=== PATIENT | female | born 1980 ===

== ENCOUNTER 2016-11-09 10:23 | Emergency (ER) | payer MEDICAID, OTHER ==
--- NOTE | 2016-11-09 10:46 | OBHP ---
Datetime: 11/09/2016 10:43 IP Adm Impression: , intrauterine IP Chief Complaint Other: cramping IP Admit Plan: Observation/Evaluation Admit Comment, IP Provider: at 32weeks came with cramping started last night 2 am, 10/12, no lof ,no vb,+fm obhx 1 x pmh denies med pnv all nkda psh denies soch den ve closed a/p at 32weeks ctxs r/o pt labor ua npo/ivf cont steve and efm cont close observation Pelvic Type - PN: Adequate Extremities - PN: Normal Abdomen - PN: Normal Back - PN: Normal Breast - PN: Normal Lungs - PN: Normal Heart - PN: Normal Thyroid - PN: Normal Neurologic - PN: Normal HEENT - PN: Normal General - PN: Normal FHR - Baseline A Provider: 140 Contraction Comments Provider: q8-10 Comments, ACOG Physical Exam: gravid,non tender etx no edema,no calf ten Vital Signs Provider: Reviewed; Within Normal Limits NICHD Variability Prov Fetus A: Moderate 6-25bpm NICHD Accel Fetus A IP Provider: 15X15 FHR Category Provider Fetus A: Category I Dilatation, Provider: 0 Effacement, Provider: 0 Station, Provider: -3 Genitourinary Exam: Normal DTRs - PN: Normal
[2016-11-09 10:48] VITALS: BMI 32.5
[2016-11-09] MEDS ORDERED: Lactated Ringer's 1,000 ML IV SCH (11:00)
[2016-11-09 11:17] LABS: RBC URINE < 1 /hpf (0-3); URINE BACTERIA MOD (<OCC); URINE BILIRUBIN NEGATIVE (NEGATIVE); URINE BLOOD NEGATIVE (NEGATIVE); URINE COLOR Yellow (YELLOW); URINE GLUCOSE (UA) NORMAL (Normal); URINE KETONE NEGATIVE (NEGATIVE); URINE LEUKOCYTE ESTERASE TRACE Leu/uL (Negative); URINE PROTEIN NEGATIVE (NEGATIVE); URINE UROBILINOGEN NORMAL mg/dL (0.2-1.0); WBC URINE 3 /hpf (0-5)
--- NOTE | 2016-11-09 12:33 | OBDS ---
MATERNAL INFORMATION Provider Comments: baby deliverd in ion.endometrium clean 9/9 b/l tubal ligtion. no com LABOR SUMMARY EDC: 01/04/2017 00:00 PRESENTATION/POSITION BABY A Presentation: Cephalic Cephalic Presentation: Vertex Vertex Position: Left Occipital Anterior Breech Presentation: N/A PLACENTA INFORMATION BABY A Placenta Method of Delivery: Spontaneous Placenta Status: Delivered CORD INFORMATION BABY A Nuchal Cord : N/A
--- NOTE | 2016-11-09 12:41 | OBDCSUM ---
Datetime: 11/09/2016 12:39 Discharged to, Provider: Home Follow up at, Provider: wednesday Follow up in weeks, Provider: clinic Discharge Comment, Provider: dc home ptl given po hyration f/u in clinic on wednesday Discharge Diagnosis Prov Other: 32weeks ctxs nst
--- NOTE | 2016-11-09 12:41 | OBHP ---
Datetime: 11/09/2016 12:38 Admit Comment, IP Provider: pt was seen at bed side,no ctxs,vb, lof,+fm ve closed s/p terb x 1 ua neg plan dc home ptl given po hyration f/u in clinic on wednesday FHR - Baseline A Provider: 130 Contraction Comments Provider: none Vital Signs Provider: Reviewed; Within Normal Limits NICHD Variability Prov Fetus A: Moderate 6-25bpm NICHD Accel Fetus A IP Provider: 10X10 FHR Category Provider Fetus A: Category I Dilatation, Provider: 0 Effacement, Provider: 0 Station, Provider: -3
== END 2016-11-09 12:39 | disposition home or self-care (01) ==
LOC: C.EROB 10:23
DX: O60.03 Preterm labor without delivery, third trimester (principal); Z3A.32 32 weeks gestation of pregnancy
CPT/HCPCS: 81001; 99283; J3105; J7120

== ENCOUNTER 2016-12-23 09:04 | Inpatient (IN) | payer OTHER ==
[2016-12-23] MEDS ORDERED: Lactated Ringer's 1,000 ML IV SCH ×2 (09:30→10:00)
--- NOTE | 2016-12-23 09:51 | OBADHP ---
Datetime: 12/23/2016 09:35 Admit Comment, IP Provider: 36 y.o., , LMP unsure, DIVINE 01/04/17, EGA 38w 2d by sono 08/03/16 at 18 weeks, c/o ctx since 0200 hours, then every 10 minutes, now every 5 minutes, pain scale 6/10. (+) AF M; denies LOF; (+) heavy mucous since yesterday. Not sexually active during the . Denies hea dahces, blurred vision, peigastric or RUQ pain. care: [facility]. Abnormal GCT 140, normal GTT 8 7/155/146/129. 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 Denies STIs or abnormal Pap; (+)HPV PMH: denies PSH: denies NKDA Meds: PNV - QD Soc Hx: denies tobacco, illicit drug or EtOH use. x 13 years. 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 HTN. Father alive 59 y.o. - HTN, DM, cardiac disease - S/P cardiac st ent placement. No knonw fam h/o cancer P.E.: as above. Obese, in NAD. Awake, alert, oriented to time, person and place. Pleasant and coop erative. present. - cervix is thick, mid to anterior position Assessment: 36 y.o. P1, 38w 4d, entering active phase of labor. GBS (-). Category 1 tracing. Ophelia pranav BPs noted; no other stigmata of pre-eclampsia. Patient counseled on possibility of magnesium sulp hate for seizure prophylaxis; also for possible cervical ripening and/or pitocin for augmentation. Coy sanchez expressed an understanding and agrees. Patient is receptive to epidural for pain management. C linically stable. Plan: 1) Admit 2) NPO 3) Admissison labs, incl pre-eclamptic labs 4) Continuous EFM 5) Epidural, upon request 6) Anticipate vaginal delivery Pelvic Type - PN: Adequate Extremities - PN: Normal Abdomen - PN: Normal Back - PN: Normal Breast - PN: Not Done Lungs - PN: Normal Heart - PN: Normal Thyroid - PN: Not Done Neurologic - PN: Normal HEENT - PN: Normal General - PN: Normal Presentation-Admit: Vertex FHR - Baseline A Provider: 145 Membranes, Provider: Intact Contraction Comments Provider: 4-5 Comments, ACOG Physical Exam: Skin: warm, dry, intact. (+) tattoo left forearm Abdomen: Obese. Gravid. Soft. Non tender in all quadrants. Fundal height 40cm DTRs: 2+ bilaterally, lower extremity All other systems reviewed and are negative Gestation - Est Wks by US: 38 weeks 2 days IP Hx Assessment: The History has been Reviewed and is Current Vital Signs Provider: Reviewed Vital Signs Provider Details: repeat BP noted IP Chief Complaint: Uterine contractions NICHD Variability Prov Fetus A: Moderate 6-25bpm NICHD Accel Fetus A IP Provider: 15X15 FHR Category Provider Fetus A: Category I NICHD Decel Fetus A IP Provider: None Dilatation, Provider: 5 Effacement, Provider: 50 Station, Provider: -3 Genitourinary Exam: Normal DTRs - PN: Normal EGA AdmitDate IP: 38.2 IP Adm Impression: Term, intrauterine ; Active labor; Intact Membranes IP Admit Plan: Admit to unit; Initiate labor augmentation protocol Datetime: 11/09/2016 10:43 IP Chief Complaint Other: cramping
[2016-12-23 10:23] LABS: BASO % 0.4 % (0.0-2.0); EOS # 0.1 K/uL (0.0-0.7); EOS % 0.7 % (0.0-4.0); HEMATOCRIT 39.8 % (34.0-47.0); LYMPH # 2.9 K/uL (1.0-4.3); LYMPH % 26.9 % (20.0-40.0); MEAN CELL VOLUME 95.9 fL (81.0-99.0); MEAN CORPUSCULAR HEMOGLOBIN 32.1 pg (27.0-31.0); MEAN CORPUSCULAR HGB CONC 33.5 g/dL (33.0-37.0); MEAN PLATELET VOLUME 8.8 fL (7.2-11.7); MONO # 0.8 K/uL (0.0-0.8); MONO % 7.7 % (0.0-10.0); RED CELL DISTRIBUTION WIDTH 13.7 % (11.5-14.5); WHITE BLOOD COUNT 10.9 K/uL (4.8-10.8)
--- NOTE | 2016-12-23 10:24 | OBPN ---
Datetime: 12/23/2016 10:20 IP Progress Plan: Cervical Ripening; Anticipate Vaginal Delivery Contraction Comments Provider: 5 IP Progress Note Comment: Patient reports ctx pain scale 2/10; not yet ready for epidural Cytotec 25 micrograms inserted per vagina Assessment: P1, 38w 2d, cervical ripening as above. Category 1 tracing. BP wnl. Clinically stable . Plan: 1) Continue present management. 20 Anticipate vaginal delivery Dilatation, Provider: 5 Effacement, Provider: 50 Station, Provider: -3 Datetime: 12/23/2016 09:35 Membranes, Provider: Intact FHR - Baseline A Provider: 145 Gestation - Est Wks by US: 38 weeks 2 days Presentation-Admit: Vertex Vital Signs Provider: Reviewed Vital Signs Provider Details: repeat BP noted NICHD Accel Fetus A IP Provider: 15X15 FHR Category Provider Fetus A: Category I NICHD Variability Prov Fetus A: Moderate 6-25bpm NICHD Decel Fetus A IP Provider: None
[2016-12-23 10:32] LABS: RBC URINE 1 /hpf (0-3); URINE BACTERIA MANY (<OCC); WBC URINE 2 /hpf (0-5)
[2016-12-23 10:42] LABS: CHLORIDE 105 mmol/L (98-107); INR 0.9; POTASSIUM 3.6 mmol/L (3.6-5.2); SODIUM 135 mmol/L (132-148); URINE BILIRUBIN NEGATIVE (NEGATIVE); URINE BLOOD TRACE (NEGATIVE); URINE COLOR YELLOW (YELLOW); URINE GLUCOSE (UA) NEGATIVE (Normal); URINE KETONE NEGATIVE (NEGATIVE); URINE PROTEIN NEGATIVE (NEGATIVE); URINE UROBILINOGEN 0.2 mg/dL (0.2-1.0)
[2016-12-23 10:43] LABS: URINE LEUKOCYTE ESTERASE TRACE Leu/uL (Negative)
[2016-12-23 10:44] LABS: AST/SGOT 32 U/L (14-36); BILIRUBIN,TOTAL 0.6 mg/dL (0.2-1.3); CARBON DIOXIDE 20 mmol/L (22-30); GFR AFRICAN-AMERICAN > 60
[2016-12-23 10:45] LABS: ALKALINE PHOSPHATASE 215 U/L (38-126); ALT/SGPT 39 U/L (9-52); BLOOD UREA NITROGEN 7 mg/dL (7-17); GLUCOSE,RANDOM 67 mg/dL (65-105); TOTAL PROTEIN 7.1 g/dL (6.3-8.3); URIC ACID 3.6 mg/dL (2.2-7.5)
[2016-12-23 10:46] LABS: CALCIUM 9.4 mg/dl (8.6-10.4)
[2016-12-23] MEDS ORDERED: Bupivacaine 0.125%/FentaNYL 200 ML EPI ONE (11:12)
[2016-12-23] MEDS ORDERED: Oxytocin 30 UNIT 30 UNITS/500 ML BAG IV ONE (14:15)
[2016-12-23] MEDS ORDERED: Oxytocin 30 UNIT 30 UNITS/500 ML BAG IV PRN (14:30)
--- NOTE | 2016-12-23 17:02 | OBPN ---
Datetime: 12/23/2016 16:49 IP Progress Impression: Normal progression of labor IP Procedures: Artificial ROM IP Progress Plan: Continue present management; Augmentation; Anticipate Vaginal Delivery Membranes, Provider: Ruptured Amniotic Fluid Color, Provider: Clear Contraction Comments Provider: 2-3 FHR - Baseline A Provider: 140 Gestation - Est Wks by US: 38w 2d Presentation-Admit: Vertex IP Progress Note Comment: Patient with bloody show; examined at approximately 1620 hours: received i n LDR#4 c/o increasing low back pain. Denies pain of contractions; (+) vaginal pressure V.E. : as above. Pitocin at 5 mU Assessment: 36 yo P1, 38w 2d, adequate progress, in labor; S/P cervical ripening, now on pitocin. Category 1 tracing. FHR subsequently noted for "loss of contact". This is being rectified by R.N. No w, early decelerations noted. Clinically stable Plan: 1) Continue present management 2) Anticipate vaginal delivery NICHD Accel Fetus A IP Provider: 15X15 FHR Category Provider Fetus A: Category I NICHD Variability Prov Fetus A: Moderate 6-25bpm Dilatation, Provider: 7 Effacement, Provider: 80 Station, Provider: -2 NICHD Decel Fetus A IP Provider: None
[2016-12-23] MEDS ORDERED: Lidocaine 2% Inj (20ml) ONE (17:32)
[2016-12-23] MEDS ORDERED: Oxycodone/Acetaminophen 5/325 mg Tab PO PRN ×2 (18:44)
[2016-12-24] MEDS ORDERED: Benzocaine/Menthol 20%-0.5% Topical Spray (60 ml) TOP SCH
[2016-12-24 00:19] VITALS: O2SAT 98
[2016-12-24 07:48] LABS: HEMATOCRIT 33.8 % (34.0-47.0); MEAN CELL VOLUME 97.4 fL (81.0-99.0); MEAN CORPUSCULAR HGB CONC 32.9 g/dL (33.0-37.0); MEAN PLATELET VOLUME 8.8 fL (7.2-11.7); RED CELL DISTRIBUTION WIDTH 13.6 % (11.5-14.5); WHITE BLOOD COUNT 12.2 K/uL (4.8-10.8)
--- NOTE | 2016-12-24 12:35 | OBPPN ---
Datetime: 12/24/2016 12:33 PP Pain Prov: Within normal limits PP Nausea Prov: Denies PP Flatus Prov: Yes PP BM Prov: No PP Heart Prov: Normal PP Lungs Prov: Normal PP Abdomen/Uterus Prov: Normal PP Vulva/Perineum Prov: Normal PP CVA Tenderness Prov: Normal PP C/S Incision Prov: Not Applicable PP Progress Prov: Normal PP Impression Prov: Normal progression PP Plan Prov: Continue present management PP Progress Note Prov: S-patient reports adequate pain control. Denies nausea, vomiting, headache, c hest pain, shortness of breath.Ambulating and voiding without any difficulty. O-VSS Afebrile Fundus firm and below umbilicus Extremities no calf tenderness A/P Patient s/p vaginal delivery PPD 1 doing well. -continue routine care -encourage ambulation and po fluid intake Vital Signs Provider PP: Reviewed; Within Normal Limits
[2016-12-25 08:08] VITALS: BP 135/84; PULSE 80; RESP 18; TEMP 98.1
--- NOTE | 2016-12-25 11:23 | OBDS ---
DELIVERY PERSONNEL Delivery Doctor: Scott Sellers MD Scrub Nurse: Josseline Brown Acoustic Intelligence Specialist: Cande Lobo RN MATERNAL INFORMATION Delivery Anesthesia: Epidural Medications in Delivery: Pitocin 30 units IV; Lidocaine 2% locally Estimated Blood Loss (ml): 200 Placenta Cultured: No Maternal Complications: None RN Comments: Liveborn Baby Girl. 9-9. Provider Comments: Uncomplicated vaginal delivery of live female over RML episiotomy, weight 7lb 7oz , Apgars 9/9 - 12/23/16 at 1718 hours Spontaneous delivery of placenta - grossly intact; 3 cord vessel Examination of cervix, vagina, perineum - no extensions Repair as above. and mother bonding; both in stable condition LABOR SUMMARY EDC: 01/04/2017 00:00 No. Babies in Womb: 1 Attempted: No Labor Anesthesia: Epidural LABOR INFORMATION Reason for Induction: Not Applicable Onset of Labor: 12/23/2016 02:00 Complete Dilatation: 12/23/2016 17:02 Cervical Ripening Agents: Cytotec @ (Annotations: Cytotec 25mcg x 1 dose intravaginally administered by ) Oxytocin: Augmentation Group B Beta Strep: Negative (Annotations: 12/09/16) Antibiotics # of Doses: 0 Antibiotics Time of Last Dose: 0 Steroids Given: None Reason Steroids Not Administered: Not Applicable MEMBRANES Membranes Rupture Method: Artificial Rupture of Membranes: 12/23/2016 16:25 Length of Rupture (hrs): 0.88 Amniotic Fluid Color: Clear Amniotic Fluid Amount: Moderate Amniotic Fluid Odor: Normal STAGES OF LABOR Stage 1 hrs: 15 Stage 1 min: 2 Stage 2 hrs: 0 Stage 2 min: 16 Stage 3 hrs: 0 Stage 3 min: 10 Total Time in Labor hrs: 15 Total Time in Labor min: 28 VAGINAL DELIVERY Episiotomy: Right Mediolateral Laceration Extension: N/A Laceration Type: None Laceration Repair: Yes for RML Episiotomy Laceration Repair Note: 2-0 chromic and 3-0 chromic in routine fashion. Hemostasis assured. Patient tolerated procedure well Initial Vag Sponge Count: 10 Final Vag Sponge Count: 10 Initial Vag Sharps Count: 3 Final Vag Sharps Count: 3 Sponge Count Correct: Vaginal Sweep Performed Sharps Count Correct: Yes Count Comment: 2 sutures and 1 needle Correct BABY A INFORMATION Delivery Date/Time: 12/23/2016 17:18 Method of Delivery: Vaginal Born in Route : No : N/A Forceps: N/A Vacuum Extraction: N/A Shoulder Dystocia : No SHOULDER DYSTOCIA BABY A Infant Delivery Date/Time: 12/23/2016 17:18 PRESENTATION/POSITION BABY A Presentation: Cephalic Cephalic Presentation: Vertex Vertex Position: Right Occipital Anterior Breech Presentation: N/A PLACENTA INFORMATION BABY A Placenta Delivery Time : 12/23/2016 17:28 Placenta Method of Delivery: Spontaneous Placenta Status: Delivered SCORES BABY A Heart Rate 1 min: >100 bpm Resp Effort 1 min: Good Cry Reflex Irritability 1 min: Cough or Sneeze or Pulls Away Muscle Tone 1 min: Active Motion Color 1 min: Body [place], Extremities Blue Resuscitation Effort 1 min: N/A SCORE 1 MIN: 9 Heart Rate 5 min: >100 bpm Resp Effort 5 min: Good Cry Reflex Irritability 5 min: Cough or Sneeze or Pulls Away Muscle Tone 5 min: Active Motion Color 5 min: Body [place], Extremities Blue Resuscitation Effort 5 min: N/A SCORE 5 MIN: 9 INFANT INFORMATION BABY A Gestational Age at Delivery: 38.2 Gestational Status: Term Outcome : Liveborn Condition : Stable Infant Sex: Female IDENTIFICATION/MEDS BABY A ID Band Number: [id number] ID Band Location: Left Leg; Left Arm Sensor Applied: Yes Sensor Number: [id number] Sensor Location : Cord Clamp Vitamin K Given : Not Given Erythromycin Given: Not Given WEIGHT/LENGTH BABY A Birthweight (gms): 3380 Infant Weight (lb): 7 Weight (oz): 7 Infant Length Inches: 19.25 Length cms: 48.9 CORD INFORMATION BABY A No. Cord Vessels: 3 Nuchal Cord : N/A Cord Blood Taken: Yes Infant Suction: Mouth; Nose ASSESSMENT BABY A Complications: None Physical Findings at Delivery: Within Normal Limits Infant Respirations: Appears Normal Certified First Assistant/ALS Called : No Care By: /Uche CARDOZO Transferred To: [facility]
--- NOTE | 2016-12-25 11:23 | OBDS ---
DELIVERY PERSONNEL Delivery Doctor: Scott Sellers MD Scrub Nurse: Josseline Brown Opal Miner: Cande Lobo RN MATERNAL INFORMATION Delivery Anesthesia: Epidural Medications in Delivery: Pitocin 30 units IV; Lidocaine 2% locally Estimated Blood Loss (ml): 200 Placenta Cultured: No Maternal Complications: None RN Comments: Liveborn Baby Girl. 9-9. Provider Comments: Uncomplicated vaginal delivery of live female over RML episiotomy, weight 7lb 7oz , Apgars 9/9 - 12/23/16 at 1718 hours Spontaneous delivery of placenta - grossly intact; 3 cord vessel Examination of cervix, vagina, perineum - no extensions Repair as above. and mother bonding; both in stable condition LABOR SUMMARY No. Babies in Womb: 1 Attempted: No Labor Anesthesia: Epidural LABOR INFORMATION Reason for Induction: Not Applicable Onset of Labor: 12/23/2016 02:00 Complete Dilatation: 12/23/2016 17:02 Cervical Ripening Agents: Cytotec @ (Annotations: Cytotec 25mcg x 1 dose intravaginally administered by ) Oxytocin: Augmentation Group B Beta Strep: Negative (Annotations: 12/09/16) Antibiotics # of Doses: 0 Antibiotics Time of Last Dose: 0 Steroids Given: None Reason Steroids Not Administered: Not Applicable MEMBRANES Membranes Rupture Method: Artificial Rupture of Membranes: 12/23/2016 16:25 Length of Rupture (hrs): 0.88 Amniotic Fluid Color: Clear Amniotic Fluid Amount: Moderate Amniotic Fluid Odor: Normal STAGES OF LABOR Stage 1 hrs: 15 Stage 1 min: 2 Stage 2 hrs: 0 Stage 2 min: 16 Stage 3 hrs: 0 Stage 3 min: 10 Total Time in Labor hrs: 15 Total Time in Labor min: 28 VAGINAL DELIVERY Episiotomy: Right Mediolateral Laceration Extension: N/A Laceration Type: None Laceration Repair: Yes for RML Episiotomy Laceration Repair Note: 2-0 chromic and 3-0 chromic in routine fashion. Hemostasis assured. Patient tolerated procedure well Initial Vag Sponge Count: 10 Final Vag Sponge Count: 10 Initial Vag Sharps Count: 3 Final Vag Sharps Count: 3 Sponge Count Correct: Vaginal Sweep Performed Sharps Count Correct: Yes Count Comment: 2 sutures and 1 needle Correct BABY A INFORMATION Infant Delivery Date/Time: 12/23/2016 17:18 Method of Delivery: Vaginal Born in Route : No : N/A Forceps: N/A Vacuum Extraction: N/A Shoulder Dystocia : No SHOULDER DYSTOCIA BABY A Delivery Date/Time: 12/23/2016 17:18 PRESENTATION/POSITION BABY A Vertex Position: Right Occipital Anterior PLACENTA INFORMATION BABY A Placenta Delivery Time : 12/23/2016 17:28 SCORES BABY A Heart Rate 1 min: >100 bpm Resp Effort 1 min: Good Cry Reflex Irritability 1 min: Cough or Sneeze or Pulls Away Muscle Tone 1 min: Active Motion Color 1 min: Body [place], Extremities Blue Resuscitation Effort 1 min: N/A SCORE 1 MIN: 9 Heart Rate 5 min: >100 bpm Resp Effort 5 min: Good Cry Reflex Irritability 5 min: Cough or Sneeze or Pulls Away Muscle Tone 5 min: Active Motion Color 5 min: Body [place], Extremities Blue Resuscitation Effort 5 min: N/A SCORE 5 MIN: 9 INFORMATION BABY A Gestational Age at Delivery: 38.2 Gestational Status: Term Infant Outcome : Liveborn Infant Condition : Stable Infant Sex: Female IDENTIFICATION/MEDS BABY A ID Band Number: [id number] ID Band Location: Left Leg; Left Arm Sensor Applied: Yes Sensor Number: [id number] Sensor Location : Cord Clamp Vitamin K Given : Not Given Erythromycin Given: Not Given WEIGHT/LENGTH BABY A Infant Birthweight (gms): 3380 Weight (lb): 7 Infant Weight (oz): 7 Length Inches: 19.25 Infant Length cms: 48.9 CORD INFORMATION BABY A No. Cord Vessels: 3 Cord Blood Taken: Yes Suction: Mouth; Nose ASSESSMENT BABY A Complications: None Physical Findings at Delivery: Within Normal Limits Infant Respirations: Appears Normal Decorating Machine Operator/ALS Called : No Care By: /Uche CARDOZO Transferred To: [facility]
--- NOTE | 2016-12-25 11:27 | OBPPN ---
Datetime: 12/25/2016 11:22 PP Pain Prov: Within normal limits PP Nausea Prov: Denies PP Flatus Prov: Yes PP BM Prov: Yes PP Breasts Prov: Normal PP Heart Prov: Normal PP Lungs Prov: Normal PP Abdomen/Uterus Prov: Normal PP Lochia Prov: Normal PP Vulva/Perineum Prov: Normal PP CVA Tenderness Prov: Normal PP Extremities Prov: Normal PP C/S Incision Prov: Not Applicable PP Progress Prov: Normal PP Comments Phys Exam Prov: Abdomen: obese. Soft, non distended, Fundus firm, mobile, 18 weeks, non tender. Mild lochia rubra All other systems reviewed and are negative PP Impression Prov: Normal progression PP Plan Prov: Discharge PP Progress Note Prov: Patient received in room 460 no complaints. , primarily P.E.: as above. WD in NAD. Awake, alert, oriented to time, person and place. Assessment: PPD#2, 36 yo P2, S/P . Afebrile, vital signs stable. Undecided re: contraception. B rief discussion of options available. Clinically stable. Plan: 1) Discharge home 2) See full discharge instructions Vital Signs Provider PP: Reviewed; Within Normal Limits
--- NOTE | 2016-12-25 11:28 | OBDCSUM ---
Datetime: 12/25/2016 10:00 Discharged to, Provider: Home Follow up at, Provider: [facility] Disch Instr Activity: Normal activity Disch Instr Diet: Regular Discharge Diagnosis, Provider: Term Delivered Discharge Time: 12/25/2016 12:00 Follow up in weeks, Provider: 02/03/17 Disch Referrals: None Contraception discussed, Prov: Yes Disch Activity Restrictions: No exercising; No lifting; No driving; Minimize walking; Minimize stair -climbing; No sexual activity; Nothing in vagina - [place], tampons, douche Discharge Diagnosis Prov Other: Contraception counseling Contraception after Delivery: Undecided
== END 2016-12-25 14:25 | disposition home or self-care (01) | DRG 373 ==
LOC: C.EROB 09:04 → C.4D 09:26 → C.4M 20:09
PROVIDERS: ADMIT Obstetrics & Gynecology; ATTEND Obstetrics & Gynecology
PROC: 10E0XZZ Delivery of Products of Conception, External Approach (ICD-10-PCS; principal; 2016-12-23)
PROC: 0W8NXZZ Division of Female Perineum, External Approach (ICD-10-PCS; 2016-12-23)
PROC: 10907ZC Drainage of Amniotic Fluid, Therapeutic from Products of Conception, Via Natural or Artificial Opening (ICD-10-PCS; 2016-12-23)
DX: O80 Encounter for full-term uncomplicated delivery (principal); Z82.49 Family history of ischemic heart disease and other diseases of the circulatory system; Z37.0 Single live birth; Z3A.38 38 weeks gestation of pregnancy; Z83.3 Family history of diabetes mellitus

== ENCOUNTER 2017-01-20 16:02 | Inpatient (IN) | payer OTHER ==
[2017-01-20 16:03] VITALS: BMI 32.5
[2017-01-20] MEDS ORDERED: Iohexol 240 (50 ml) PO STA (16:33)
[2017-01-20] MEDS ORDERED: Sodium Chloride 0.9% 1,000 ML IV ONE (16:33)
--- NOTE | 2017-01-20 16:42 | C.PDOC ---
History Of Present Illness 36-year-old female, one-month post , spontaneous vaginal delivery with no complications, presents to the emergency department with complaints of abdominal pain. Patient states she saw her PMD one week after deliver for fever , but everything was "normal." Last night, patient developed left sided abdominal pain, that progressively worsened. Patient states the pain became constant today, described as a stabbing sensation, and worse with movement,. She notes associated fever and mild vaginal bleed. No other complaints at this time. Time Seen by Provider: 01/20/17 16:29 Chief Complaint (Nursing): Abdominal Pain History Per: Patient History/Exam Limitations: no limitations Onset/Duration Of Symptoms: Days Current Symptoms Are (Timing): Still Present Severity: Moderate Past Medical History Reviewed: Historical Data, Nursing Documentation, Vital Signs Vital Signs: Last Vital Signs Temp 100.7 F H 01/20/17 21:18 Pulse 114 H 01/20/17 21:18 Resp 20 01/20/17 21:18 BP 151/82 H 01/20/17 21:18 Pulse Ox 97 01/20/17 21:50 - [facility] Procedures DELIVERY OF PRODUCTS OF CONCEPTION, EXTERNAL APPROACH (12/23/16) DIVISION OF FEMALE PERINEUM, EXTERNAL APPROACH (12/23/16) DRAINAGE OF AMNIOTIC FL, THERAP FROM POC, VIA OPENING (12/23/16) Family History: States: No Known Family Hx - Social History Hx Alcohol Use: No Hx Substance Use: No - Immunization History Hx Tetanus Toxoid Vaccination: No Hx Influenza Vaccination: No Hx Pneumococcal Vaccination: No Review Of Systems Except As Marked, All Systems Reviewed And Found Negative. Constitutional: Positive for: Fever Cardiovascular: Negative for: Chest Pain Respiratory: Negative for: Shortness of Breath Gastrointestinal: Positive for: Abdominal Pain. Negative for: Nausea, Vomiting Genitourinary: Positive for: Vaginal Bleeding Musculoskeletal: Negative for: Back Pain Neurological: Negative for: Weakness, Numbness Physical Exam - Physical Exam Appears: Non-toxic, No Acute Distress Skin: Warm, Dry, No Rash Head: Atraumatic, Normacephalic Eye(s): bilateral: Normal Inspection, PERRL, EOMI Nose: Normal Oral Mucosa: Moist Lips: Normal Appearing Neck: Normal ROM Cardiovascular: Rhythm Regular, No Murmur Respiratory: Normal Breath Sounds, No Accessory Muscle Use Gastrointestinal/Abdominal: Soft, Tenderness (mild, left sided), No Guarding, No Rebound Extremity: Normal ROM Neurological/Psych: Oriented x3, Normal Speech ED Course And Treatment - Laboratory Results Result Diagrams: 01/20/17 16:50 01/20/17 16:50 Lab Interpretation: Abnormal (WBC 13.9, Urine + WBC 28 with moderate bacteria and 2+leukocyte esterase but also 28 squamous epithelials.) O2 Sat by Pulse Oximetry: 97 - CT Scan/US Abd & pelvis CT Other Rad Studies (CT/US): Read By Radiologist, Radiology Report Reviewed CT/US Interpretation: FINDINGS: Lower thorax: Pleural based scar is noted in the left lower lobe. ABDOMEN: Liver: The liver is low in density. There is a focal inflammation of the hepatic flexure with mucosal. thickening and inflammatory change within the adjacent fat. The liver measures 17.4 cm in. craniocaudal span at the midclavicular line. Gallbladder and bile ducts: Unremarkable. No calcified stones. No ductal dilation. Pancreas: Unremarkable. No mass. No ductal dilation. Spleen: There is a 5 mm accessory spleen anterior to this plane superiorly. Adrenals: Unremarkable. No mass. Kidneys and ureters : Unremarkable. No solid mass. No obstructing stones. No hydronephrosis. Stomach and bowel: Unremarkable. No obstruction. No mucosal thickening. Appendix: No findings to suggest acute appendicitis. PELVIS: Bladder: Unremarkable. No mass. No stones. Reproductive: There is a right ovarian dermoid measuring 4 cm in greatest diameter. ABDOMEN and PELVIS: Intraperitoneal space: A small amount of free fluid is seen in the posterior cul -de-sac. No free air. Bones/joints: No acute fracture. No dislocation. Soft tissues: Unremarkable. Vasculature: Unremarkable. No abdominal aortic aneurysm. Lymph nodes: Unremarkable. No enlarged lymph nodes. IMPRESSION: 1. Focal colitis involving a portion of the descending colon distal to the hepatic flexure. No diverticula. are seen. Inflammatory bowel disease is among the diagnostic considerations. 2. Right ovarian dermoid. 3. Hepatic steatosis Reevaluation Time: 21:48 Reassessment Condition: Unchanged (Patient still c/o left sided abdominal pain. Fever decreased to 100.7 but she remains tachycardic.) - Physician Consult Information Time Consulting Physician Contacted: 21:50 Physician Contacted: Uziel De La O Outcome Of Conversation: Patient to be admitted for descending colitis. IV antibiotics started in ED. Disposition - Disposition Disposition: HOSPITALIZED Disposition Time: 21:56 Condition: STABLE - POA Present On Arrival: None - Clinical Impression Clinical Impression: Colitis - Scribe Statement The provider has reviewed the documentation as recorded by the Scribe (Jo-Ann Swan) All medical record entries made by the Scribe were at my direction and personally dictated by me. I have reviewed the chart and agree that the record accurately reflects my personal performance of the history, physical exam, medical decision making, and the department course for this patient. I have also personally directed, reviewed, and agree with the discharge instructions and disposition
[2017-01-20 16:55] LABS: BASO % 0.4 % (0.0-2.0); EOS # 0.3 K/uL (0.0-0.7); HEMOGLOBIN 13.7 g/dL (11.0-16.0); LYMPH # 2.2 K/uL (1.0-4.3); MEAN CELL VOLUME 94.8 fL (81.0-99.0); MEAN CORPUSCULAR HEMOGLOBIN 31.4 pg (27.0-31.0); MEAN CORPUSCULAR HGB CONC 33.1 g/dL (33.0-37.0); MEAN PLATELET VOLUME 8.4 fL (7.2-11.7); MONO # 0.9 K/uL (0.0-0.8); MONO % 6.6 % (0.0-10.0); NEUT # 10.4 K/uL (1.8-7.0); RBC 4.35 Mil/uL (3.80-5.20); RED CELL DISTRIBUTION WIDTH 12.7 % (11.5-14.5); WHITE BLOOD COUNT 13.9 K/uL (4.8-10.8)
[2017-01-20 17:03] LABS: ALBUMIN 4.1 g/dL (3.5-5.0)
[2017-01-20 17:06] LABS: ALB/GLOB RATIO 1.2 (1.0-2.1); AST/SGOT 32 U/L (14-36); BLOOD UREA NITROGEN 11 mg/dL (7-17); GFR AFRICAN-AMERICAN > 60; GFR NON-AFRICAN AMERICAN > 60
[2017-01-20 17:07] LABS: ALT/SGPT 60 U/L (9-52); CALCIUM 8.8 mg/dl (8.6-10.4); LIPASE 99 U/L (23-300)
[2017-01-20] MEDS ORDERED: Iohexol 240 (50 ml) ONE (17:12)
[2017-01-20] MEDS ORDERED: Sodium Chloride 0.9% 1,000 ML ONE (17:13)
[2017-01-20 17:17] LABS: SQUAMOUS EPITHIAL 28 /hpf (0-5); URINE BACTERIA OCC (<OCC); URINE BILIRUBIN NEGATIVE (NEGATIVE); URINE CLARITY Hazy (Clear); URINE COLOR Yellow (YELLOW); URINE GLUCOSE (UA) NORMAL (Normal); URINE LEUKOCYTE ESTERASE 2+ Leu/uL (Negative); URINE NITRATE NEGATIVE (NEGATIVE); URINE PROTEIN NEGATIVE (NEGATIVE); URINE UROBILINOGEN NORMAL mg/dL (0.2-1.0)
[2017-01-20 17:20] LABS: URINE BLOOD 2+ (NEGATIVE)
[2017-01-20] MEDS ORDERED: Iodixanol 320 MG/ML 200 ML BOTTLE IV ONE (20:52)
--- NOTE | 2017-01-20 21:41 | CT ---
EXAM: CT Abdomen and Pelvis Without and With Intravenous Contrast CLINICAL HISTORY: 36 years old, female; Pain; Abdominal pain; Generalized; Additional info: Abd pain TECHNIQUE: Axial computed tomography images of the abdomen and pelvis without and with intravenous contrast. This CT exam was performed using one or more of the following dose reduction techniques: automated exposure control, adjustment of the mA and/or kV according to patient size, and/or use of iterative reconstruction technique. Coronal and sagittal reformatted images were created and reviewed. CONTRAST: 100 mL of visipaque 320 administered intravenously. EXAM DATE/TIME: Exam ordered 01/20/2017 4:33 PM COMPARISON: No relevant prior studies available. FINDINGS: Lower thorax: Pleural based scar is noted in the left lower lobe. ABDOMEN: Liver: The liver is low in density. There is a focal inflammation of the hepatic flexure with mucosal thickening and inflammatory change within the adjacent fat. The liver measures 17.4 cm in craniocaudal span at the midclavicular line Gallbladder and bile ducts: Unremarkable. No calcified stones. No ductal dilation. Pancreas: Unremarkable. No mass. No ductal dilation. Spleen: There is a 5 mm accessory spleen anterior to this plane superiorly. Adrenals: Unremarkable. No mass. Kidneys and ureters: Unremarkable. No solid mass. No obstructing stones. No hydronephrosis. Stomach and bowel: Unremarkable. No obstruction. No mucosal thickening. Appendix: No findings to suggest acute appendicitis. PELVIS: Bladder: Unremarkable. No mass. No stones. Reproductive: There is a right ovarian dermoid measuring 4 cm in greatest diameter. ABDOMEN and PELVIS: Intraperitoneal space: A small amount of free fluid is seen in the posterior cul-de-sac. No free air. Bones/joints: No acute fracture. No dislocation. Soft tissues: Unremarkable. Vasculature: Unremarkable. No abdominal aortic aneurysm. Lymph nodes: Unremarkable. No enlarged lymph nodes. IMPRESSION: 1. Focal colitis involving a portion of the descending colon distal to the hepatic flexure. No diverticula are seen. Inflammatory bowel disease is among the diagnostic considerations. 2. Right ovarian dermoid. 3. Hepatic steatosis.
[2017-01-20] MEDS ORDERED: Piperacillin/Tazobact 3.375 gm 100 ML IVPB ONE (22:06)
[2017-01-20] MEDS: Piperacillin/Tazobact 3.375 gm 100 ML IV STA ×2 (22:08→22:18)
--- NOTE | 2017-01-20 23:41 | CP.PCM.HP ---
History of Present Illness - History of Present Illness History of Present Illness: CC: Left Upper quadrant pain x 3 days HPI: 36-year-old female, one-month post , spontaneous vaginal delivery with no complications, presents to the emergency department with complaints of abdominal pain. Patient states she saw her PMD one week after deliver for fever , but everything was "normal." Last night, patient developed left sided abdominal pain sharp colicky in nature associated with fever, rigors, chills, that progressively worsened. Patient states the pain became constant today, described as a stabbing sensation, and worse with movement,. She notes associated fever and mild vaginal bleed. No other complaints at this time. Present on Admission - Present on Admission Any Indicators Present on Admission: Yes Review of Systems - Review of Systems Systems not reviewed;Unavailable: Acuity of Condition - Constitutional Constitutional: Anorexia, Chills, Fatigue, Fever, Lethargy, Malaise - EENT Eyes: absent: As Per HPI, Blind Spots, Blurred Vision, Change in Vision, Decreased Night Vision, Diplopia, Discharge, Dry Eye, Exophthalmos, Floaters, Irritation, Itchy Eyes, Loss of Peripheral Vision, Pain, Photophobia, Requires Corrective Lenses, Sees Flashes, Spots in Vision, Tunnel Vision, Other Visual Disturbances, Loss of Vision, Other Nose/Mouth/Throat: absent: As Per HPI, Epistaxis, Nasal Congestion, Nasal Discharge, Nasal Obstruction, Nasal Trauma, Nose Pain, Post Nasal Drip, Sinus Pain, Sinus Pressure, Bleeding Gums, Change in Voice, Dental Pain, Dry Mouth, Dysphagia, Halitosis, Hoarsness, Lip Swelling, Mouth Lesions, Mouth Pain, Odynophagia, Sore Throat, Throat Swelling, Tongue Swelling, Facial Pain, Neck Pain, Neck Mass, Other - Cardiovascular Cardiovascular: absent: As Per HPI, Acrocyanosis, Chest Pain, Chest Pain at Rest , Chest Pain with Activity, Claudication, Diaphoresis, Dyspnea, Dyspnea on Exertion, Edema, Irregular Heart Rhythm, Pain Radiating to Arm/Neck/Jaw, Leg Edema, Leg Ulcers, Lightheadedness, Orthopnea, Palpitations, Paroxysmal Nocturnal Dyspnea, Pedal Edema, Radiating Pain, Rapid Heart Rate, Slow Heart Rate, Syncope, Other - Respiratory Respiratory: absent: As Per HPI, Cough, Dyspnea, Hemoptysis, Dyspnea on Exertion , Wheezing, Snoring, Stridor, Pain on Inspiration, Chest Congestion, Excessive Mucous Production, Change in Mucous Color, Pain with Coughing, Other - Gastrointestinal Gastrointestinal: Abdominal Pain - Genitourinary Genitourinary: absent: As Per HPI, Change in Urinary Stream, Difficulty Urinating, Dysuria, Flank Pain, Hematuria, Pyuria, Nocturia, Urinary Incontinence, Urinary Frequency, Urinary Hesitance, Urinary Urgency, Voiding Freq/Small Amts, Freq UTI, Hx Renal/Bladder Calculi, Hx /Renal Surgery, Bladder Distension, Other - Reproductive: Female Reproductive:Female: Currently Menstual - Menstruation Menstruation: Currently Menstual - Integumentary Integumentary: absent: As Per HPI, Acne, Alopecia, Bleeding Lesions, Change in Hair, Change in Nails, Change in Pigmentation, Changing Lesions, Dry Skin, Erythema, Furuncle, Hirsutism, Lesions, New Lesions, Non-Healing Lesions, Photosensitivity, Pruritus, Rash, Skin Pain, Skin Ulcer, Sores, Striae, Swelling , Unusual Bruising, Wounds, Jaundice, Other - Neurological Neurological: absent: As Per HPI, Abnormal Gait, Abnormal Hearing, Abnormal Movements, Abnormal Speech, Behavioral Changes, Burning Sensations, Confusion, Convulsions, Disequilibrium, Dizziness, Numbness, Focal Weakness, Frequent Falls , Headaches, Lack of Coordination, Loss of Vision, Memory Loss, Paresthesias, Radicular Pain, Restless Legs, Sensory Deficit, Syncope, Tingling, Tremor, Vertigo, Weakness, Other Visual Disturbances, Other Past Patient History - Infectious Disease Hx of Infectious Diseases: None - Past Social History Smoking Status: Never Smoked - PSYCHIATRIC Hx Substance Use: No - SURGICAL HISTORY Hx Surgeries: No - ANESTHESIA Hx Anesthesia: Yes Meds Home Medications: Home Medication List Medication Instructions Recorded Confirmed Type Dicyclomine [Bentyl] 20 mg PO BID PRN #20 tab 01/22/17 Rx Metronidazole [Flagyl] 500 mg PO Q8H #15 tablet 01/22/17 Rx Allergies/Adverse Reactions: Allergies Allergy/AdvReac Type Severity Reaction Status Date / Time No Known Allergies Allergy Verified 01/20/17 16:18 Physical Exam - Constitutional Appears: No Acute Distress - Head Exam Head Exam: ATRAUMATIC, NORMAL INSPECTION, NORMOCEPHALIC - Eye Exam Eye Exam: EOMI, Normal appearance, PERRL Pupil Exam: NORMAL ACCOMODATION, PERRL - Respiratory Exam Respiratory Exam: Clear to Auscultation Bilateral, NORMAL BREATHING PATTERN - Cardiovascular Exam Cardiovascular Exam: REGULAR RHYTHM - GI/Abdominal Exam GI & Abdominal Exam: Tenderness. absent: Bruit, Diminished Bowel Sounds, Distended, Firm, Guarding, Hernia, Hyperactive Bowel Sounds, Hypoactive Bowel Sounds, Mass, Normal Bowel Sounds, Organomegaly, Pulsatile Mass, Rebound, Rigid , Soft Additional comments: LUQ Results - Vital Signs Recent Vital Signs: Last Vital Signs Temp 102 F H 01/20/17 23:21 Pulse 100 H 01/20/17 23:21 Resp 16 01/20/17 23:21 BP 118/62 01/20/17 23:21 Pulse Ox 100 01/20/17 23:21 - Labs Result Diagrams: 01/20/17 16:50 01/20/17 16:50 Assessment & Plan (1) Colitis Status: Acute
[2017-01-21] MEDS: Piperacillin/Tazobact 3.375 GM in Sodium Chloride 100 ML IVPB SCH ×4 (01:00→17:26)
[2017-01-21] MEDS: metroNIDAZOLE IV 500 mg/100 ml 500 MG/100 ML BAG IVPB SCH ×4 (02:13→21:25)
[2017-01-21] MEDS ORDERED: Peg-Electrolyte Oral Soln 4L (Golytely) PO ONE (11:30)
--- NOTE | 2017-01-21 14:19 | PN ---
LOCATION: *------* bed B. SUBJECTIVE: This is a [id number] female seen for GI consultation on 01/20/2017, reexamined again today with intermittent periods of abdominal pain, generalized weakness and malaise. It was reported abnormal CAT scan of the abdomen and pelvis. The entire chart is reviewed including, but not limited to most recent lab and radiologist's results. Current and previous medication list and current and previous medical events, and the patient is still having abnormal white blood cell, but normal hemoglobin and hematocrit. PHYSICAL EXAMINATION GENERAL: A [id number] female with low-grade temperature of 99.3, heart rate 102, respiratory rate 20 to 22, blood pressure is 128/74. HEENT: Showed pale dry oral mucous membrane. Nonicteric sclerae. LUNGS: She has got crepitation, decreased air entry at bases. HEART: Positive S1 and S2. ABDOMEN: Soft bowel sounds are present with decreased tenderness. No masses or organomegaly or rebound tenderness or guarding. RECTAL: The patient refused. EXTREMITIES: Without edema, clubbing, cyanosis.. NEUROLOGIC: No neurological deficits, sensory or motor. IMPRESSION: 1. Colitis of unclear etiology to rule out inflammatory bowel disease to rule out infectious colitis. 2. Change of bowel movement habit likely secondary to above. SUGGESTION: 1. Agree with your plan. 2. Sedimentation rate. 3. The patient referred for colonoscopy after adequate preparation to rule out possible ulcerative colitis versus pseudomembranous colitis. 4. Further recommendation to follow. Qamar Navarro MD
[2017-01-21] MEDS ORDERED: Bisacodyl 5mg EC Tab PO ONE (17:00)
--- NOTE | 2017-01-21 21:25 | CP.PCM.PN ---
Subjective - Date & Time of Evaluation Date of Evaluation: 01/21/17 Time of Evaluation: 10:00 - Subjective Subjective: Pt seen and evalauted c/o abdominal pain LUQ, will be seen by GI and scheduled possible colonoscopy, Objective - Vital Signs/Intake and Output Vital Signs (last 24 hours): Temp Pulse Resp BP Pulse Ox 97.9 F 90 20 131/82 99 01/21/17 16:02 01/21/17 16:02 01/21/17 16:02 01/21/17 16:02 01/21/17 16:02 Intake and Output: 01/21/17 01/22/17 18:59 06:59 Intake Total 700 Balance 700 - Medications Medications: Current Medications Acetaminophen (Tylenol 325mg Tab) 650 mg PO Q6 PRN PRN Reason: Fever >100.4 F Last Admin: 01/21/17 08:45 Dose: 650 mg Metronidazole (Flagyl) 500 mg in 100 mls @ 100 mls/hr IVPB Q8 WILLIAM Last Admin: 01/21/17 13:54 Dose: 100 mls/hr Piperacillin Sod/Tazobactam (Sod 3.375 gm/ Sodium Chloride) 100 mls @ 200 mls/ hr IVPB Q6H WILLIAM Last Admin: 01/21/17 17:26 Dose: 200 mls/hr Ketorolac Tromethamine (Toradol) 15 mg IVP Q6 PRN PRN Reason: Pain, moderate (4-7) Metoclopramide HCl (Reglan) 5 mg IVP Q6 WILLIAM Last Admin: 01/21/17 17:26 Dose: 5 mg - Constitutional Appears: No Acute Distress - Eye Exam Eye Exam: EOMI, Normal appearance, PERRL Pupil Exam: NORMAL ACCOMODATION, PERRL - Respiratory Exam Respiratory Exam: Clear to Ausculation Bilateral, NORMAL BREATHING PATTERN - Cardiovascular Exam Cardiovascular Exam: REGULAR RHYTHM, +S1, +S2. absent: Murmur - GI/Abdominal Exam GI & Abdominal Exam: Soft, Tenderness, Normal Bowel Sounds. absent: Bruit, Distended, Firm, Guarding, Rigid, Diminished Bowel Sounds, Hernia, Hyperactive Bowel Sounds, Hypoactive Bowel Sounds, Organomegaly, Pulsatile Mass, Rebound, Mass Assessment and Plan (1) Colitis Status: Acute
[2017-01-22] MEDS: Piperacillin/Tazobact 3.375 GM in Sodium Chloride 100 ML IVPB SCH ×3 (01:00→13:13)
[2017-01-22] MEDS: metroNIDAZOLE IV 500 mg/100 ml 500 MG/100 ML BAG IVPB SCH (05:08)
[2017-01-22] MEDS ORDERED: Propofol 10 mg/ml Inj (20 ML) ONE ×2 (11:23→11:30)
[2017-01-22 11:52] VITALS: TEMP 98.4
[2017-01-22 12:22] VITALS: BP 105/54; PULSE 72; RESP 14; O2SAT 97
[2017-01-22] MEDS ORDERED: Belladonna-Phenobarbital PO SCH (14:00)
--- NOTE | 2017-01-22 17:00 | CP.PCM.PN ---
Subjective - Date & Time of Evaluation Date of Evaluation: 01/22/17 Time of Evaluation: 11:00 - Subjective Subjective: Alert and orientedx3, no sob or abdominal pain, NAD. Objective - Vital Signs/Intake and Output Vital Signs (last 24 hours): Temp Pulse Resp BP Pulse Ox 98.4 F 72 14 105/54 L 97 01/22/17 11:38 01/22/17 12:08 01/22/17 12:08 01/22/17 12:08 01/22/17 12:08 Intake and Output: 01/22/17 01/22/17 06:59 18:59 Intake Total 300 Balance 300 Assessment and Plan - Assessment and Plan (Free Text) Assessment: Patient is seen and examined. S/P colonoscopy today. No active bleeding, tolerated diet, denies abdominal pain or vomiting, cleared by DR Molina. D/W DR Arroyo, discharge plan for today. Advised to follow up with PMD in 1 week. Flagyl po for 3 days and bentyl 20 mg prn for cramps given for home.
--- NOTE | 2017-01-22 23:31 | CON ---
DATE: 01/20/2017 LOCATION: 564, bed B. From Dr. Navarro and Dr. Jaylyn Triplett. HISTORY OF PRESENT ILLNESS: I was called for GI consultation by the admitting MD. The patient was seen and fully examined on 01/20/2017, as requested by the medical staff. The past chart is reviewed including, but not limited to the most recent lab and radiologist's results, current and previous medication list, current and previous medical events, allergy to medication list as well as all the available current and previous medical records. Case discussed at length with the admitting medical team. This is a 36-year-old female who was admitted to the hospital through the emergency room with severe crampy abdominal pain alteration of bowel movement habit about one week ago post normal spontaneous vaginal delivery with intermittent period of fever, constant left-sided pain with some mild chills and some vaginal bleeding. The patient also had episodes of mild nausea and dyspepsia, but no vomiting. PAST MEDICAL HISTORY: As above. Normal recent delivery. FAMILY HISTORY: Unknown. SOCIAL HISTORY: No known history of cigarette smoking or alcohol intake. PHYSICAL EXAMINATION GENERAL: A 36-year-old female, awake, alert, and oriented, complaining of abdominal pain with low-grade temperature of 107, heart rate 106, blood pressure 138/84 with respiratory rate 20 to 22. HEENT: Showed pale, dry oral mucous membrane. Nonicteric sclerae. LYMPH NODES: No lymphadenitis or lymphadenopathy. LUNGS: Clear. Breathing sounds are present bilaterally. HEART: S1, S2 with increased rate. ABDOMEN: Soft with slight distention and significant tenderness, especially on the left side. No mass or organomegaly. No rebound tenderness or guarding. RECTAL: The patient refused. EXTREMITIES: Without significant clubbing, cyanosis, or edema. NEUROLOGIC: No neurological deficits, sensory, or motor. LABORATORY DATA: After being admitted to the hospital, CAT scan of the abdomen and pelvis was performed, indicative of left-sided colitis and the possibility of inflammatory bowel disease was raised, as well as evidence of hepatic steatosis with right ovarian dermoid. Most recent lab results showed leukocytosis of 13.9, but so far initially normal hemoglobin and hematocrit with normal platelet count with low creatinine of 0.6 with increased ALT of 60. Initial report, urine hCG was negative. IMPRESSION; 1. Colitis as diagnosed by the radiologist's result. The possibility of early stage of inflammatory bowel disease versus pseudomembranous colitis to be ruled in or out. 2. Rule out infectious colitis. 3. Recent change in bowel movement habit, most likely secondary to above. SUGGESTION: 1. Continue current management. 2. Blood culture x2. 3. *------* workup. 4. Sedimentation rate. 5. CEA. 6. Endoscopic evaluation of the lower gastrointestinal tract after adequate preparation. 7. Further recommendation to follow. Qamar Navarro MD
== END 2017-01-22 16:47 | disposition home or self-care (01) | DRG 814 ==
LOC: C.ER 16:02 → C.5T 21:55
PROVIDERS: ADMIT Internal Medicine; ATTEND Internal Medicine
PROC: 0DBM8ZX Excision of Descending Colon, Via Natural or Artificial Opening Endoscopic, Diagnostic (ICD-10-PCS; principal; 2017-01-22 11:22)
DX: K52.89 Other specified noninfective gastroenteritis and colitis (principal); K76.0 Fatty (change of) liver, not elsewhere classified; R19.4 Change in bowel habit; K64.8 Other hemorrhoids; N93.9 Abnormal uterine and vaginal bleeding, unspecified

== ENCOUNTER 2018-05-27 10:29 | Emergency (ER) | payer OTHER ==
[2018-05-27 10:36] VITALS: BMI 33.5
[2018-05-27 11:12] LABS: SQUAMOUS EPITHIAL 63 /hpf (0-5); URINE BACTERIA OCC (<OCC); URINE BILIRUBIN NEGATIVE (NEGATIVE); URINE BLOOD NEGATIVE (NEGATIVE); URINE CLARITY Hazy (Clear); URINE COLOR Yellow (YELLOW); URINE GLUCOSE (UA) NORMAL (Normal); URINE LEUKOCYTE ESTERASE 3+ Leu/uL (Negative); URINE PROTEIN NEGATIVE (NEGATIVE); URINE UROBILINOGEN NORMAL mg/dL (0.2-1.0)
--- NOTE | 2018-05-27 15:38 | OBHP ---
Datetime: 05/27/2018 12:20 IP Adm Impression: Term, intrauterine IP Admit Plan: Observation/Evaluation Admit Comment, IP Provider: This 36 year old Female with no PMHx - presents c/o uterine contrac tions since 3am this morning. She also had increased suprapubic pressure 2d ago. She denies any vagin al bleeding, any decreased movement, or any loss of fluid. She recently had blood work complete d at [facility], but is unaware of the results. She reports feeling well overall, has had an uneventful to date, and states she wants to make sure she and the baby are okay. Denies fevers, chills, dizziness, headache, n/v, d/c, abdominal pain, LE edema, or any additional acute complaints. PMHx- none PSHx- none FamHx- Mom 61yo w/cervical CA; Dad w/HTN, CAD, hemodialysis 2018, cardiac stent SocHx- no tobacco, no ETOH, no drug use OBHx EDC 06/14/18 based on LMP and Second Trimester US LMP 09/07/17 #1 F, 01/16/05, , epidural #2 F, 12/23/16, , epidural GynHx: Onset of Menses- 15yo Periods- regular, q28W, last 3-5d No hx of STDs Mother w/ Cervical CA Assessment/ Plan irregular contractions, not complaining of pain not in active labor intggac membranes reactive NST pt request dc home for now labor precautions reviewed with pt and verbalized understanding advised to increase PO water intake advised to keep scheduled apt with clinic on wednesday 10am if no active labor Pt seen, examined, assessment and plan discussed with Dr Kristel Casiano PGY1, Internal Medicine Resident Pelvic Type - PN: Adequate Extremities - PN: Normal Abdomen - PN: Normal Back - PN: Normal Breast - PN: Not Done Lungs - PN: Normal Heart - PN: Normal Thyroid - PN: Normal Neurologic - PN: Normal HEENT - PN: Normal General - PN: Normal Presentation-Admit: Vertex FHR - Baseline A Provider: 140 Membranes, Provider: Intact Contraction Comments Provider: Irregular Comments, ACOG Physical Exam: dilated 2cm Gestation - Est Wks by US: 37.2 EGA AdmitDate IP: 37.2 Vital Signs Provider: Reviewed; Within Normal Limits IP Chief Complaint: Uterine contractions; Maternal discomfort NICHD Variability Prov Fetus A: Moderate 6-25bpm NICHD Accel Fetus A IP Provider: 10X10 FHR Category Provider Fetus A: Category I NICHD Decel Fetus A IP Provider: None Dilatation, Provider: 2 Effacement, Provider: 50 Station, Provider: -3 Genitourinary Exam: Normal DTRs - PN: Normal
--- NOTE | 2018-05-27 15:43 | OBDCSUM ---
Datetime: 05/27/2018 12:24 Discharged to, Provider: Home Follow up at, Provider: [facility] Disch Instr Activity: Normal activity Disch Instr Diet: Regular Discharge Instructions, Provider: Routine instructions given Discharge Diagnosis, Provider: False Labor - Undelivered Discharge Time: 05/27/2018 12:24 Follow up in weeks, Provider: Monday 05/28. Contraception discussed, Prov: Yes Disch Activity Restrictions: No exercising; Minimize stair-climbing Discharge Comment, Provider: This 36 year old Female with an IUP at 37.2 weeks, presents c/o ut erine contractions since 3am this morning. She also had increased suprapubic pressure 2d ago. She den ies any vaginal bleeding, any decreased movement, or any loss of fluid. She recently had blood work completed at [facility], but is unaware of the results. She reports feeling well overal l, has had an uneventful to date, and states she wants to make sure she and the baby are ok ay. Denies fevers, chills, dizziness, headache, n/v, d/c, abdominal pain, LE edema, or any additional acute complaints. PMHx- none PSHx- none FamHx- Mom 61yo w/cervical CA; Dad w/HTN, CAD, hemodialysis 2018, cardiac stent SocHx- no tobacco, no ETOH, no drug use OBHx EDC 06/14/18 based on LMP and Second Trimester US LMP 09/07/17 #1 F, 01/16/05, , epidural #2 F, 12/23/16, , epidural GynHx: Onset of Menses- 15yo Periods- regular, q28W, last 3-5d No hx of STDs Mother w/ Cervical CA Assessment/ Plan irregular contractions, not complaining of pain UA Negative not in active labor intact membranes reactive NST pt request dc home for now and ordered labor precautions reviewed with pt and verbalized understanding advised to increase PO water intake advised to keep scheduled apt with clinic on Wednesday 10am if no active labor Pt seen, examined, assessment and plan discussed with Dr Kristel Casiano PGY1, Internal Medicine Resident Discharge Diagnosis Prov Other: Term Contraception after Delivery: Undecided
[2018-05-27 16:49] VITALS: BP 125/84; PULSE 93; RESP 18; TEMP 98.4; O2SAT 96
== END 2018-05-27 12:27 | disposition home or self-care (01) ==
LOC: C.EROB 10:29
DX: O47.1 False labor at or after 37 completed weeks of gestation (principal); Z3A.37 37 weeks gestation of pregnancy

== ENCOUNTER 2018-05-31 09:10 | Inpatient (IN) | payer OTHER ==
[2018-05-31 09:39] VITALS: BMI 33.6
[2018-05-31] MEDS ORDERED: Oxycodone/Acetaminophen 5/325 mg Tab PO PRN ×2 (10:04→10:30)
[2018-05-31 10:24] LABS: BASO % 0.5 % (0.0-2.0); EOS # 0.1 K/uL (0.0-0.7); EOS % 1.3 % (0.0-4.0); HEMOGLOBIN 14.5 g/dL (11.0-16.0); LYMPH # 2.5 K/uL (1.0-4.3); LYMPH % 27.3 % (20.0-40.0); MEAN CELL VOLUME 99.2 fL (81.0-99.0); MEAN CORPUSCULAR HEMOGLOBIN 33.5 pg (27.0-31.0); MEAN CORPUSCULAR HGB CONC 33.8 g/dL (33.0-37.0); MEAN PLATELET VOLUME 8.8 fL (7.2-11.7); MONO # 0.5 K/uL (0.0-0.8); MONO % 5.4 % (0.0-10.0); NEUT % 65.5 % (50.0-75.0); RBC 4.33 Mil/uL (3.80-5.20); RED CELL DISTRIBUTION WIDTH 13.6 % (11.5-14.5); WHITE BLOOD COUNT 9.2 K/uL (4.8-10.8)
[2018-05-31 10:28] LABS: ALB/GLOB RATIO 1.2 (1.0-2.1); ALBUMIN 3.8 g/dL (3.5-5.0); ALT/SGPT 34 U/L (9-52); AST/SGOT 33 U/L (14-36); BLOOD UREA NITROGEN 7 mg/dL (7-17); GFR NON-AFRICAN AMERICAN > 60
[2018-05-31] MEDS ORDERED: Benzocaine/Menthol 20%-0.5% Topical Spray (60 ml) TOP PRN (10:30)
[2018-05-31] MEDS ORDERED: Lidocaine Hydrochloride 10 ML INJ ONE (10:35)
--- NOTE | 2018-05-31 13:25 | OBHP ---
Datetime: 05/31/2018 09:29 IP Adm Impression: Term, intrauterine ; Active labor; Intact Membranes IP Admit Plan: Admit to unit; Initiate labor protocol Admit Comment, IP Provider: This 36 year old Female with an IUP at 37.6 weeks, presents c/o inc reased suprapubic pressure and uterine contractions since 5am this morning. She states that these con tractions feel more intense than when she last presented on 05/27/18. She currently denies any vagina l bleeding, any decreased movement, or any loss of fluid. She recently had blood work completed at [facility], but is unaware of the results. She has had an uneventful to date, and "feels like the baby is coming today." Denies fevers, chills, dizziness, headache, n/v, d/c, LE e golden, or any additional acute complaints. PMHx- GBS+ (current ) PSHx- none FamHx- Mom 61yo w/cervical CA; Dad w/HTN, CAD, hemodialysis 2018, cardiac stent SocHx- no tobacco, no ETOH, no drug use OBHx EDC 06/14/18 based on LMP and Second Trimester US LMP 09/07/17 #1 F, 01/16/05, , epidural #2 F, 12/23/16, , epidural GynHx: Onset of Menses- 15yo Periods- regular, q28W, last 3-5d No hx of STDs Mother w/ Cervical CA A_P: -admit for active labor -GBS+ -> start Penicillin G IV 5mu -LR 1L bolus + LR 125cc/hr -intact membranes -reactive NST Case discussed with Dr Marlo Florian, DO, PGY3 Attending Note: patient seen, examined by me. I agree with the above as documented. Patient is cli nically stable. Anticipate vaginal delivery Pelvic Type - PN: Adequate Extremities - PN: Normal Abdomen - PN: Normal Back - PN: Normal Lungs - PN: Normal Heart - PN: Normal Thyroid - PN: Normal Neurologic - PN: Normal HEENT - PN: Normal General - PN: Normal FHR - Baseline A Provider: 135 Membranes, Provider: Intact Contraction Comments Provider: 2-3 Comments, ACOG Physical Exam: No LE edema, cervix dilated 9.5-10cm Gestation - Est Wks by US: 38.0 IP Hx Assessment: The History has been Reviewed and is Current (Annotations: Data stored by CPN on behalf of user) EGA AdmitDate IP: 37.6 Vital Signs Provider: Reviewed; Within Normal Limits IP Chief Complaint: Uterine contractions NICHD Variability Prov Fetus A: Moderate 6-25bpm (Annotations: Data stored by CPN on behalf of user) NICHD Accel Fetus A IP Provider: 10X10 FHR Category Provider Fetus A: Category I NICHD Decel Fetus A IP Provider: Variable Dilatation, Provider: 10 Effacement, Provider: 90 Station, Provider: -1 Genitourinary Exam: Normal DTRs - PN: Normal
--- NOTE | 2018-05-31 13:50 | OBDS ---
DELIVERY PERSONNEL Delivery Doctor: Scott Sellers MD Commissioning Specialist: John Hernadezdarci RN MATERNAL INFORMATION Delivery Anesthesia: None Medications in Delivery: pitocin 20 Estimated Blood Loss (ml): 500 Placenta Cultured: No Maternal Complications: None Provider Comments: Spontaneous vagnal delivery, live male , LINDSAY position. 's mouth and n ose bulb-suctioned; umbilical cord doubly clamped and cut; infant handed to range scientist in attendanc e. Spontaneous delivery of placenta: grossly intact; 3 vessel cord Uterine exploration performed; uterus emptied of clots. Uterus firm and contracted Inspection of cervix, vagina and perineum performed - laceration as above; repaired. Mother tolerated procedure; skin to skin with infant. Both in stable condition. EBL 500mL Weight 7lb 6oz 's 9/9 LABOR SUMMARY EDC: 06/15/2018 00:00 No. Babies in Womb: 1 LABOR INFORMATION Group B Beta Strep: Positive STAGES OF LABOR Stage 3 hrs: 0 Stage 3 min: 30 VAGINAL DELIVERY Episiotomy: None Laceration Extension: First Degree Laceration Type: Perineal Laceration Repair Note: 2-0 chromic - routine fashion. Hemostasis assured; Patient tolerated procedu re well Initial Vag Sponge Count: 10 Final Vag Sponge Count: 10 Initial Vag Sharps Count: 1 Final Vag Sharps Count: 1 Sponge Count Correct: Yes Sharps Count Correct: Yes Count Comment: Correct BABY A INFORMATION Delivery Date/Time: 05/31/2018 09:59 Method of Delivery: Vaginal Born in Route : No : N/A Forceps: N/A Vacuum Extraction: N/A Shoulder Dystocia : No SHOULDER DYSTOCIA BABY A Infant Delivery Date/Time: 05/31/2018 09:59 PRESENTATION/POSITION BABY A Presentation: Cephalic Cephalic Presentation: Vertex Vertex Position: Left Occipital Anterior Breech Presentation: N/A PLACENTA INFORMATION BABY A Placenta Delivery Time : 05/31/2018 10:29 Placenta Method of Delivery: Spontaneous Placenta Status: Delivered SCORES BABY A Heart Rate 1 min: >100 bpm Resp Effort 1 min: Good Cry Reflex Irritability 1 min: Cough or Sneeze or Pulls Away Muscle Tone 1 min: Active Motion Color 1 min: Body Cope, Extremities Blue Resuscitation Effort 1 min: Tactile Stimulation SCORE 1 MIN: 9 Heart Rate 5 min: >100 bpm Resp Effort 5 min: Good Cry Reflex Irritability 5 min: Cough or Sneeze or Pulls Away Muscle Tone 5 min: Active Motion Color 5 min: Body Cope, Extremities Blue SCORE 5 MIN: 9 INFANT INFORMATION BABY A Gestational Age at Delivery: 37.6 Gestational Status: Infant Outcome : Liveborn Infant Condition : Stable Sex: Male IDENTIFICATION/MEDS BABY A ID Band Number: [id number] ID Band Location: Left Leg; Left Arm Sensor Applied: Yes Sensor Number: [id number] Sensor Location : Cord Clamp Vitamin K Given : Aquamephyton 1 mg IM Erythromycin Given: Given Both Eyes WEIGHT/LENGTH BABY A Infant Birthweight (gms): 3345 Weight (lb): 7 Infant Weight (oz): 6 Infant Length Inches: 19.00 Length cms: 48.3 CORD INFORMATION BABY A No. Cord Vessels: 3 Nuchal Cord : N/A Cord Blood Taken: Yes Infant Suction: Mouth; Nose (Annotations: Data stored by [facility] on behalf of user) ASSESSMENT BABY A Infant Complications: None Physical Findings at Delivery: Within Normal Limits Infant Respirations: Appears Normal Dado Operator/ALS Called : No Infant Care By: dee Transferred To: Remains with Mother
[2018-05-31 21:33] LABS: SQUAMOUS EPITHIAL 1 /hpf (0-5); URINE BACTERIA RARE (<OCC); URINE BILIRUBIN NEGATIVE (NEGATIVE); URINE BLOOD 3+ (NEGATIVE); URINE CLARITY Clear (Clear); URINE COLOR AMBER (YELLOW); URINE GLUCOSE (UA) NORMAL (Normal); URINE LEUKOCYTE ESTERASE 1+ Leu/uL (Negative); URINE PROTEIN 1+ mg/dL (NEGATIVE); URINE UROBILINOGEN NORMAL mg/dL (0.2-1.0)
[2018-06-01 07:13] LABS: BASO % 0.3 % (0.0-2.0); EOS # 0.2 K/uL (0.0-0.7); EOS % 1.6 % (0.0-4.0); LYMPH # 2.9 K/uL (1.0-4.3); MEAN CORPUSCULAR HEMOGLOBIN 32.7 pg (27.0-31.0); MEAN CORPUSCULAR HGB CONC 33.7 g/dL (33.0-37.0); MEAN PLATELET VOLUME 8.1 fL (7.2-11.7); MONO # 0.7 K/uL (0.0-0.8); MONO % 6.3 % (0.0-10.0); NEUT # 7.8 K/uL (1.8-7.0); NEUT % 66.8 % (50.0-75.0); RBC 3.66 Mil/uL (3.80-5.20); RED CELL DISTRIBUTION WIDTH 13.7 % (11.5-14.5); WHITE BLOOD COUNT 11.7 K/uL (4.8-10.8)
[2018-06-01] MEDS: Multiple Vitamins Tab PO SCH (09:35)
[2018-06-01] MEDS: Simethicone 80 mg Chewtab PO PRN (09:35)
--- NOTE | 2018-06-01 22:14 | OBPPN ---
Datetime: 06/01/2018 10:28 PP Pain Prov: Within normal limits PP Nausea Prov: Denies PP Flatus Prov: Yes PP BM Prov: No PP Breasts Prov: Not Done PP Heart Prov: Normal PP Lungs Prov: Normal PP Abdomen/Uterus Prov: Normal PP Lochia Prov: Normal PP Extremities Prov: Normal PP Progress Prov: Normal PP Impression Prov: Normal progression PP Plan Prov: Continue present management PP Progress Note Prov: Pt denies chest pain, SOB. Pt denies abdominal pain, does reports some mild c ramping. Pt states she is attempting to breastfeed, but she has not begun producing milk yet. Pt stat es she has flatus but has not moved her bowels yet. Pt has been drinking water. Pt states she has bee n having vaginal discharge, which is minimal and red/ bloody. Pt denies fever or chills, or any other signs of infection. Assessment and plan - Day #1 - PP H_H 12.0/35.5 - Blood Type A+g - continue to attempt to breast feed - mortin for pain control as needed - continue OOB and walking - encourged to continue to drink water - continue current managment - progressing well Pt seen, examined, assessment and plan discussed with Dr Yvon Casiano PGY1, Internal Medicine [employer] IP PP Procedures: None Vital Signs Provider PP: Within Normal Limits
[2018-06-02 08:44] VITALS: BP 119/76; PULSE 79; RESP 20; TEMP 98.1
[2018-06-02] MEDS: Multiple Vitamins Tab PO SCH (10:32)
[2018-06-02] MEDS: Simethicone 80 mg Chewtab PO PRN (10:32)
--- NOTE | 2018-06-02 18:03 | OBDCSUM ---
Datetime: 06/02/2018 13:06 Discharged to, Provider: Home Follow up at, Provider: [facility] Disch Instr Activity: Normal activity Disch Instr Diet: Regular Discharge Instructions, Provider: Routine instructions given Discharge Diagnosis, Provider: Term Delivered Discharge Time: 06/02/2018 13:30 Follow up in weeks, Provider: 6 weeks Disch Referrals: None Contraception discussed, Prov: Yes Disch Activity Restrictions: No sexual activity; Nothing in vagina - [place], tampons, douche Discharge Diagnosis Prov Other: Advanced maternal age Short interval between Multiparity, desires permanent sterilization Contraception ncounseling Contraception after Delivery: Undecided
--- NOTE | 2018-06-02 18:12 | OBPPN ---
Datetime: 06/02/2018 10:11 PP Pain Prov: Within normal limits PP Nausea Prov: Denies PP Flatus Prov: Yes PP BM Prov: No PP Breasts Prov: Normal PP Heart Prov: Normal PP Lungs Prov: Normal PP Abdomen/Uterus Prov: Normal PP Lochia Prov: Normal PP Vulva/Perineum Prov: Normal PP CVA Tenderness Prov: Normal PP Extremities Prov: Normal PP C/S Incision Prov: Not Applicable PP Progress Prov: Normal PP Comments Phys Exam Prov: Abdomen: Obese. Soft. Non distended. Fundus firm, mobile, non tender, 1 FB below umbilicus. Mild lochia rubra Extremities: no calf tenderness, or edema All other systems reviewed and are negative PP Impression Prov: Normal progression PP Plan Prov: Discharge PP Progress Note Prov: Pt seen and examined this morning at bedside. Pt has no new complaints at thi s time. Pt states her pain is controlled well with motrin. Pt reports her vaginal discharge is bloody and mostly like a period. Pt states she has been OOB and able to walk. She is drinking water. Pt has passes flatus but no BM yet. Assessment and plan - plan to discharge home today - pt advised to continue to take PNV - pt given prescription for motrin and advised to take for pain - pt advised pelvic rest, no intercourse for the next 6 weeks - control methods were discussed, pt expresses interest in possible permenent tubal ligation in the future. advised to use barrier/ condoms until a final decision is made - advised to follow up with her OBGYN for continued out pt care Pt seen, examined, assessement and plan discussed with Dr Marlo Casiano PGY1, Internal Medicine Resident Attending Note: patient seen and evaluated by me with the Resident. I agree with the above as docu mented - 37 y.o. P3, PPD#2, S/P . Afebrile, vital signs stable. Patient desires permanent sterilizatio n. Discussed other methods while awaiting surgery - most interested in OCPs, then condom use. Clinica lly stable. Plan: 1) Discharge home 2) See full discharge instrucitons IP PP Procedures: None Vital Signs Provider PP: Reviewed; Within Normal Limits
[2018-06-02 18:51] VITALS: O2SAT 97
== END 2018-06-02 14:46 | disposition home or self-care (01) | DRG 373 ==
LOC: C.EROB 09:10 → C.4D 09:25 → C.EROB 09:28 → C.4M 12:34
PROVIDERS: ADMIT Obstetrics & Gynecology; ATTEND Obstetrics & Gynecology
PROC: 10E0XZZ Delivery of Products of Conception, External Approach (ICD-10-PCS; principal; 2018-05-31)
PROC: 0HQ9XZZ Repair Perineum Skin, External Approach (ICD-10-PCS; 2018-05-31)
DX: O99.824 Streptococcus B carrier state complicating childbirth (principal); O70.0 First degree perineal laceration during delivery; Z3A.37 37 weeks gestation of pregnancy; Z37.0 Single live birth

== ENCOUNTER 2018-06-06 23:02 | Emergency (ER) | payer OTHER ==
[2018-06-06 23:02] VITALS: BMI 33.6
--- NOTE | 2018-06-07 00:10 | C.PDOC ---
History Of Present Illness 37 year old female presents to the ED c/o constipation, difficulty moving her bowels for the past 4 days. Patient is 1 week post currently breast feeding, vaginal delivery. Patient states her pain is mostly on RLQ that anywher e else. Patient denies fever, chills, nausea, vomit, diarrhea, rash, back pain. Time Seen by Provider: 06/07/18 00:10 Chief Complaint (Nursing): Abdominal Pain History Per: Patient History/Exam Limitations: no limitations Onset/Duration Of Symptoms: Days Current Symptoms Are (Timing): Still Present Location Of Pain/Discomfort: Diffuse, RLQ Quality Of Discomfort: Dull, Aching Associated Symptoms: Constipation. denies: Fever, Chills, Nausea, Vomiting, Diarrhea Alleviating Factors: None Recent travel outside of the [place]: No Additional History Per: Patient Abnormal Vaginal Bleeding: No Past Medical History Reviewed: Historical Data, Nursing Documentation, Vital Signs Vital Signs: Last Vital Signs Temp 98.6 F 06/06/18 23:07 Pulse 101 H 06/06/18 23:07 Resp 20 06/06/18 23:07 BP 121/79 06/06/18 23:07 Pulse Ox 98 06/06/18 23:07 - Medical History PMH: No Chronic Diseases Surgical History: No Surg Hx - [facility] Procedures DELIVERY OF PRODUCTS OF CONCEPTION, EXTERNAL APPROACH (05/31/18) DIVISION OF FEMALE PERINEUM, EXTERNAL APPROACH (12/23/16) DRAINAGE OF AMNIOTIC FL, THERAP FROM POC, VIA OPENING (12/23/16) EXCISION OF DESCENDING COLON, ENDO, DIAGN (01/20/17) REPAIR PERINEUM SKIN, EXTERNAL APPROACH (05/31/18) Family History: States: Unknown Family Hx - Social History Hx Alcohol Use: No Hx Substance Use: No - Immunization History Hx Tetanus Toxoid Vaccination: No Hx Influenza Vaccination: No Hx Pneumococcal Vaccination: No Review Of Systems Constitutional: Negative for: Fever, Chills Cardiovascular: Negative for: Chest Pain Respiratory: Negative for: Shortness of Breath Gastrointestinal: Positive for: Abdominal Pain, Constipation. Negative for: Nausea, Vomiting, Diarrhea Genitourinary: Negative for: Dysuria, Hematuria Musculoskeletal: Negative for: Back Pain Skin: Negative for: Rash Neurological: Negative for: Weakness, Numbness, Headache Physical Exam - Physical Exam Appears: Non-toxic, No Acute Distress Skin: Warm, Dry Head: Normacephalic Eye(s): bilateral: Normal Inspection Neck: Supple Chest: Symmetrical Cardiovascular: Rhythm Regular Respiratory: No Rales, No Rhonchi, No Wheezing Gastrointestinal/Abdominal: Soft, Tenderness, No Guarding, No Rebound Extremity: Bilateral: Atraumatic, Normal Color And Temperature, Normal ROM Neurological/Psych: Oriented x3, Normal Speech, Normal Cognition Gait: Steady ED Course And Treatment - Laboratory Results Result Diagrams: 06/07/18 01:30 06/07/18 01:30 O2 Sat by Pulse Oximetry: 98 (ON RA) Pulse Ox Interpretation: Normal - CT Scan/US CT abd/pelvis Other Rad Studies (CT/US): Read By Radiologist, Radiology Report Reviewed CT/US Interpretation: CT SCAN OF THE ABDOMEN AND PELVIS WITH CONTRAST. CLINICAL HISTORY: Abdominal pain. TECHNIQUE: Multiple axial and coronal CT images were obtained through the abdomen and pelvis after administration of intravenous contrast material. COMPARISON: 01/20/2017. COMMENTS: Enlarged uterus. Left lateral fundal fibroid is suspected. Unchanged 4 cm right ovarian dermoid. Changes of pelvic congestion syndrome. Diffuse thickening of the bladder. Fat containing umbilical hernia without incarceration. Mild hepatomegaly, unchanged. There is no intra or extrahepatic biliary ductal dilatation. The spleen is normal. The gallbladder is within normal limits. The pancreas is of normal contour and attenuation characteristics. There is no evidence of adrenal mass. Both kidneys demonstrate prompt and equal nephrograms. The kidneys are normal in size, shape and configuration. There is no evidence of renal or ureteral mass. No renal or ureteral calculi are identified. There is no hydroureter or hydronephrosis. No evidence for appendicitis. There is no bowel wall thickening. No evidence for small or large bowel obstruction. There is no evidence of abdominal ascites or lymphadenopathy. There is no evidence of intrinsic or extrinsic bladder mass. There is no pelvic ascites or lymphadenopathy. Images of the lung bases show no evidence of pleural or parenchymal mass. There are no pleural effusions. The bony structures are free of lytic or blastic lesions. IMPRESSION: Enlarged uterus. Left lateral fundal fibroid is suspected. Unchanged 4 cm right ovarian dermoid. Changes of pelvic congestion syndrome. Diffuse thickening of the bladder. Fat containing umbilical hernia without incarceration. Thank you for your kind referral of this patient. . Electronically signed on Jun 07, 2018 4:54:16 AM EST by: Nikole Bingham M.D., Certified by [facility], MSK, Neuroradiology Progress Note: Plan: - Labs. - pepcid 20 mg IVP. - IV fluids. - UA Disposition Counseled Patient/Family Regarding: Studies Performed, Diagnosis, Need For Followup - Disposition Referrals: [facility] [Outside] Disposition: HOME/ ROUTINE Disposition Time: 00:10 Condition: FAIR Prescriptions: Cephalexin [Keflex] 500 mg PO TID #21 capsule Polyethylene Glycol 3350 [Miralax] 17 gm PO DAILY #270 ml Instructions: Acute Abdomen (Belly Pain), Adult (DC), Constipation, Adult (DC), Urinary Tract Infection, Adult (DC) Forms: [employer] ([employer]) - Clinical Impression Clinical Impression: Abdominal pain, Constipation - Scribe Statement The provider has reviewed the documentation as recorded by the Scribe Errol Dugan All medical record entries made by the Scribe were at my direction and personally dictated by me. I have reviewed the chart and agree that the record accurately reflects my personal performance of the history, physical exam, medical decision making, and the department course for this patient. I have also personally directed, reviewed, and agree with the discharge instructions and disposition.
[2018-06-07] MEDS ORDERED: Sodium Chloride 0.9% 1,000 ML IV ONE ×2 (00:23→01:43)
[2018-06-07 01:37] LABS: BASO # 0.1 K/uL (0.0-0.2); EOS # 0.5 K/uL (0.0-0.7); EOS % 3.7 % (0.0-4.0); HEMOGLOBIN 12.7 g/dL (11.0-16.0); LYMPH # 2.7 K/uL (1.0-4.3); LYMPH % 21.6 % (20.0-40.0); MEAN CELL VOLUME 96.8 fL (81.0-99.0); MEAN CORPUSCULAR HEMOGLOBIN 32.9 pg (27.0-31.0); MEAN PLATELET VOLUME 7.8 fL (7.2-11.7); MONO # 0.9 K/uL (0.0-0.8); MONO % 6.9 % (0.0-10.0); NEUT # 8.5 K/uL (1.8-7.0); NEUT % 66.8 % (50.0-75.0); RBC 3.87 Mil/uL (3.80-5.20); RED CELL DISTRIBUTION WIDTH 13.3 % (11.5-14.5); WHITE BLOOD COUNT 12.7 K/uL (4.8-10.8)
[2018-06-07 01:59] LABS: ALB/GLOB RATIO 1.3 (1.0-2.1); ALBUMIN 3.8 g/dL (3.5-5.0); ALT/SGPT 48 U/L (9-52); AST/SGOT 45 U/L (14-36); BLOOD UREA NITROGEN 14 mg/dL (7-17); GFR NON-AFRICAN AMERICAN > 60; LIPASE 80 U/L (23-300)
[2018-06-07 02:09] LABS: SQUAMOUS EPITHIAL 5 /hpf (0-5); URINE BACTERIA OCC (<OCC); URINE BILIRUBIN NEGATIVE (NEGATIVE); URINE BLOOD 3+ (NEGATIVE); URINE CLARITY Hazy (Clear); URINE COLOR Red (YELLOW); URINE GLUCOSE (UA) NORMAL (Normal); URINE LEUKOCYTE ESTERASE 3+ Leu/uL (Negative); URINE PROTEIN 2+ mg/dL (NEGATIVE); URINE UROBILINOGEN NORMAL mg/dL (0.2-1.0); WBC CLUMPS MANY /hpf
[2018-06-07] MEDS ORDERED: cefTRIAXone IV 1 gm in Dextros 50 ML IVPB ONE (02:10)
[2018-06-07] MEDS ORDERED: cefTRIAXone 1 gm 1 GM/100 ML BAG IVPB ONE (02:23)
[2018-06-07] MEDS ORDERED: Sodium Chloride 0.9% 1,000 ML ONE (02:23)
[2018-06-07] MEDS ORDERED: Iodixanol 320 MG/ML 100 ML BOTTLE IV ONE (02:33)
[2018-06-07 04:35] VITALS: PULSE 76
[2018-06-07 04:56] VITALS: O2SAT 98
[2018-06-07 06:01] VITALS: BP 142/87; RESP 20; TEMP 98.6
--- NOTE | 2018-06-07 12:02 | CT ---
Date of service: 06/07/2018 PROCEDURE: CT Abdomen and Pelvis with contrast HISTORY: rlq pain, s/p delivery COMPARISON: CT abdomen, pelvis without and with IV contrast performed 01/20/17 TECHNIQUE: Contrast dose: 100 mL Visipaque 320 IV Radiation dose: Total exam DLP = 774.69 mGy-cm. This CT exam was performed using one or more of the following dose reduction techniques: Automated exposure control, adjustment of the mA and/or kV according to patient size, and/or use of iterative reconstruction technique. FINDINGS: LOWER THORAX: No visible consolidation, pleural effusion, or pneumothorax. LIVER: Hepatomegaly. Mild periportal edema. GALLBLADDER AND BILE DUCTS: Unremarkable. PANCREAS: Unremarkable. SPLEEN: Unremarkable. ADRENALS: Unremarkable. KIDNEYS AND URETERS: The kidneys enhance symmetrically. No hydronephrosis or obstructing calculus identified. VASCULATURE: No aortic aneurysm. No atherosclerotic calcification or mural plaque present. BOWEL: Stomach is nondistended. Lack of oral contrast limits evaluation for bowel pathology. Bowel loops appear within normal limits of caliber without evidence of obstruction. APPENDIX: The appendix is not definitively identified. The presumed appendix appears within normal limits of caliber. No secondary signs of acute appendicitis. PERITONEUM: No significant free fluid. No definite free air. LYMPH NODES: No bulky adenopathy identified. BLADDER: Mildly thick-walled urinary bladder. REPRODUCTIVE: Enlarged edematous uterus. Right ovarian dermoid re-identified measuring approximately 4.4 cm. Prominent pelvic vasculature may reflect pelvic congestion syndrome. BONES: No acute osseous abnormality is detected. OTHER FINDINGS: None. IMPRESSION: The appendix is not definitively identified. The presumed appendix appears within normal limits of caliber. No secondary signs of acute appendicitis. Correlate clinically. Enlarged edematous uterus. Right ovarian dermoid re-identified measuring approximately 4.4 cm. Prominent pelvic vasculature may reflect pelvic congestion syndrome. Mildly thick-walled urinary bladder. Recommend correlation with urinalysis. Hepatomegaly. Mild periportal edema. Additional findings as above. Preliminary impression was provided by [employer]
== END 2018-06-07 06:00 | disposition home or self-care (01) ==
LOC: C.ER 23:02
DX: K59.00 Constipation, unspecified (principal); R10.31 Right lower quadrant pain
CPT/HCPCS: 74177; 80053; 81001; 83690; 85025; 87040; 96361; 96374; 96375; 99285; J0696; J7030; Q9967